=== PATIENT | male | born 1970 | race Two or more races ===

== ENCOUNTER 2021-01-05 01:29 | Emergency (ER) | payer MEDICAID, OTHER ==
[~2021-01-05] VITALS: Ht 188 cm; Wt 72.6 kg
[2021-01-05] MEDS ORDERED: KETOROLAC TROMETH 60MG/2ML VIAL IM ONE (04:30)
[2021-01-05 04:49] VITALS: BP 140/100
== END 2021-01-05 05:20 | disposition home or self-care (01) ==
LOC: ER 01:30
DX: M54.12 Radiculopathy, cervical region (principal); M77.9 Enthesopathy, unspecified
CPT/HCPCS: 72040; 73030; 96372; 99284; J1885

== ENCOUNTER 2024-05-08 14:12 | Inpatient (IN) | payer MEDICAID ==
[~2024-05-08] VITALS: Ht 188 cm; Wt 76.7 kg
--- NOTE | 2024-05-08 15:01 | ED.PDOC ---
History of Present Illness HPI Comments 53-year-old male presents with a chief complaint of redness and swelling to his left foot x onset 2 days. Patient has redness to the anterior portion of his left foot with associated swelling. Patient mentions that he smokes cigarettes, marijuana, and methamphetamine. Patient denies any injuries or trauma prior to onset of symptoms. No other symptoms or modifying factors present at this time. Chief Complaint: Lower Extremity Time Seen by MD: 14:56 Reviewed Notes: Medications, Allergies Allergies: Coded Allergies: NO KNOWN ALLERGIES (Unverified , 05/08/24) Information Source: Patient Mode of Arrival: Ambulatory Severity: Moderate Timing: Days Duration: Since onset Prehospital treatment: None Past Medical History PAST MEDICAL HISTORY: Denies Surgical History: Denies all surgeries Family History Family History: Reviewed,noncontributory to illness, No family hx of Cancer, No family hx of DM, No family hx of Heart suha, No family hx of HTN, No family hx ofKidney suha, No family hx of Liver suha, No family hx of Lung suha, No family hx of Stroke Social History Smoker: Cigarettes Alcohol: Sober Drugs: Marijuana, Methamphetamine Lives In: Home Constitutional: denies: chills, diaphoresis, fatigue, fever, malaise, sweats, weakness, others EENTM: denies: blurred vision, double vision, ear bleeding, ear discharge, ear drainage, ear pain, ear ringing, eye pain, eye redness, hearing loss, mouth pain, mouth swelling, nasal discharge, nose bleeding, nose congestion, nose pain, photophobia, tearing, throat pain, throat swelling, voice changes, others Respiratory: denies: cough, hemoptysis, orthopnea, SOB at rest, shortness of breath, SOB with excertion, stridor, wheezing, others Cardiovascular: reports: edema; denies: chest pain, dizzy spells, diaphoresis, Dyspnea on exertion, irregular heart beat, left arm pain, lightheadedness, palpitations, PND, syncope, others Gastrointestinal: denies: abdomen distended, abdominal pain, blood streaked bowels, constipated, diarrhea, dysphagia, difficulty swallowing, hematemesis, melena, nausea, poor appetite, poor fluid intake, rectal bleeding, rectal pain, vomiting, others Genitourinary: denies: burning, dysuria, flank pain, frequency, hematuria, incontinence, penile discharge, penile sore, pain, testicle pain, testicle swelling, urgency, others Neurological: denies: dizziness, fainting, headache, left sided numbness, left sided weakness, numbness, paresthesia, pre-existing deficit, right sided numbness, right sided weakness, seizure, speech problems, tingling, tremors, w eakness, others Musculoskeletal: denies: back pain, gout, joint pain, joint swelling, muscle pain, muscle stiffness, neck pain, others Integumetry: denies: bruises, change in color, change in hair/nails, dryness, laceration, lesions, lumps, rash, wounds, others Allergic/Immunocompromised: denies: Difficulty Healing, Frequent Infections, Hives, Itching, others Hematologic/Lymphatic: denies: anemia, blood clots, easy bleeding, easy bruising, swollen glands, others Endocrine: denies: excessive hunger, excessive sweating, excessive thirst, excessive urination, flushing, intolerance to cold, intolerance to heat, unexplained weight gain, unexplained weight loss, others Psychiatric: denies: anxiety, bipolar disorder, depression, hopeless, panic disorder, schizophrenia, sleepless, suicidal, others All Other Systems: Reviewed and Negative Physical Exam General Appearance: Moderate Distress HEENT: Normal ENT Inspection, Pharynx Normal, TMs Normal Neck: Full Range of Motion, Non-Tender, Normal, Normal Inspection Respiratory: Chest Non-Tender, Lungs Clear, No Accessory Muscle Use, No Respiratory Distress, Normal Breath Sounds Cardiovascular: No Edema, No JVD, No Murmur, No Gallop, Normal Peripheral Pulses, Regular Rate/Rhythm Breast Exam: Deferred Gastrointestinal: No Organomegaly, Non Tender, No Pulsatile Mass, Normal Bowel Sounds, Soft Genitalia: Deferred Pelvic: Deferred Rectal: Deferred Extremities: No calf tenderness, Normal capillary refill, No pedal edema Musculoskeletal : Apperance: Normal Neurologic: Alert, 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 Was a procedure done?: No Differential Dx Considerations may include: Cellulitis, abscess X-Ray, Labs, Meds, VS Vital Signs Date Time Temp Pulse Resp B/P (MAP) Pulse Ox O2 Delivery O2 Flow Rate FiO2 05/08/24 17:07 97.4 115 16 115/68 (84) 94 97.4 05/08/24 15:07 97.3 123 19 134/83 (100) 98 Lab Test 05/08/24 17:00 05/08/24 15:39 05/08/24 14:35 Range/Units Erythrocyte Sedimentation Rate Pending White Blood Count 9.3 4.4-10.8 10^3/uL Red Blood Count 4.94 4.5-5.90 10^6/uL Hemoglobin 14.4 13.5-17.5 g/dL Hematocrit 43.6 41.0-53.0 % Mean Corpuscular Volume 88.3 80.0-100.0 fL Mean Corpuscular Hemoglobin 29.2 28.0-32.0 pg Mean Corpuscular Hemoglobin Concent 33.1 32.0-36.0 g/dL Red Cell Distribution Width 13.0 11.8-14.3 % Platelet Count 392 140-450 10^3/uL Mean Platelet Volume 7.0 6.9-10.8 fL Neutrophils (%) (Auto) 77.0 37.0-80.0 % Lymphocytes (%) (Auto) 12.6 10.0-50.0 % Monocytes (%) (Auto) 8.0 0.0-12.0 % Eosinophils (%) (Auto) 1.8 0.0-7.0 % Basophils (%) (Auto) 0.6 0.0-2.0 % Neutrophils # (Auto) 7.2 1.6-8.6 10 ^3/uL Lymphocytes # (Auto) 1.2 0.4-5.4 10 ^3/uL Monocytes # (Auto) 0.7 0-1.3 10 ^3/uL Eosinophils # (Auto) 0.2 0-0.8 10 ^3/uL Basophils # (Auto) 0.1 0-0.2 10 ^3/uL Nucleated Red Blood Cells 0.1 % Sodium Level 138 136-145 mmol/L Potassium Level 4.4 3.5-5.1 mmol/L Chloride Level 101 98-107 mmol/L Carbon Dioxide Level 27 20-31 mmol/L Anion Gap 10 5-15 Blood Urea Nitrogen 15 9-23 mg/dL Creatinine 0.89 0.700-1.30 mg/dL Glomerular Filtration Rate Calc 104 >90 mL/min BUN/Creatinine Ratio 16.9 10.0-20.0 Serum Glucose 103 74-106 mg/dL Calcium Level 9.9 8.7-10.4 mg/dL POC Glucose 116 H 70-106 mg/dl Left Foot CT Scan Impression: 1. Subcutaneous edema around the left ankle and foot, may be seen with cellulitis in the appropriate clinical setting, although other inflammatory etiology could also have a similar appearance. 2. No organized fluid collection identified on noncontrast enhanced CT to suggest abscess, although limited evaluation for abscess. 3. No erosive changes or cortical destruction are seen to suggest osteomyelitis. If there remains clinical suspicion for osteomyelitis, MRI could be obtained. 4. Multiple chronic appearing ossific fragments are seen adjacent to the posterior inferior aspect of the lateral malleolus and lateral aspect of the talus, may be sequela of old trauma / injury. Correlate with clinical findings. 5. Hallux valgus deformity. The patient's CBC and chemistry panel are within normal limits The patient was being started on clindamycin IV piggyback The patient was being admitted to the hospitalist Time of 1ST Reevaluation: 15:26 Reevaluation 1ST: Unchanged Patient Education/Counseling: Diagnosis, Treatment, Prognosis Family Education/Counseling: Diagnosis, Treatment, Prognosis Departure 1 Departure Time of Disposition: 19:07 Impression: Primary Impression: Cellulitis of left foot Disposition: ADMITTED INPATIENT Admit to: Med Surg Condition: Fair Critical Care Note Critical Care Time?: No Stability Stability form required: Yes Unstable for transfer: ED Physician Assesment (Clinical assesment) Heart Score Heart Score: Heart Score Response (Comments) Value History N/A 0 EKG N/A 0 Age N/A 0 Risk Factors N/A 0 Troponin N/A 0 Total 0 I personally scribed for LORA TORRES MD ([email or web address]) on 05/08/24 at 15:01. Electronically submitted by Dereje Rai ([email or web address]). I personally scribed for LORA TORRES MD ([email or web address]) on 05/08/24 at 16:23. Electronically submitted by Dereje Rai ([email or web address]). LORA TORRES MD May 08, 2024 15:01
--- NOTE | 2024-05-08 15:50 | DVH ---
CLINICAL INFORMATION: 53 years old, Male; infection. TECHNIQUE: Axial CT images of the left foot were obtained without IV contrast. Coronal and sagittal r eformatted images were obtained, reviewed, and stored. All CT scans at this medical facility are p erformed using dose modulation techniques as appropriate to a performed exam including the following: Automated exposure control was utilized; adjustment of the MA and/or KV according to patient size; a nd use of iterative reconstruction technique. CTDIvol = 7.89 mGy DLP = 255.86 mGy-cm COMPARISON: None FINDINGS: There is subcutaneous edema around the left ankle and foot, which is nonspecific, but may b e seen with cellulitis in the appropriate clinical setting. There is mild skin thickening at the medi al aspect of the 1st MTP joint, may be due to infectious or inflammatory etiology. No definite organ ized fluid collection identified on limited noncontrast enhanced CT to suggest abscess. Multiple osseous fragments are seen along the posterior inferior aspect of the lateral malleolus and adjacent to the lateral aspect of the talus, may be sequela of prior trauma, with chronic appearance. No erosive changes or acute appearing areas of cortical destruction to suggest osteomyelitis. There is hallux valgus deformity. IMPRESSION: 1. Subcutaneous edema around the left ankle and foot, may be seen with cellulitis in the appropriate clinical setting, although other inflammatory etiology could also have a similar appearance. 2. No organized fluid collection identified on noncontrast enhanced CT to suggest abscess, although l imited evaluation for abscess. 3. No erosive changes or cortical destruction are seen to suggest osteomyelitis. If there remains cli nical suspicion for osteomyelitis, MRI could be obtained. 4. Multiple chronic appearing ossific fragments are seen adjacent to the posterior inferior aspect of the lateral malleolus and lateral aspect of the talus, may be sequela of old trauma / injury. Corre late with clinical findings. 5. Hallux valgus deformity.
[2024-05-08 15:53] LABS: Basophils # (auto) 0.1 10 ^3/uL (0-0.2); Basophils % (auto) 0.6 % (0.0-2.0); Eosinophils # (auto) 0.2 10 ^3/uL (0-0.8); Eosinophils % (auto) 1.8 % (0.0-7.0); Hematocrit 43.6 % (41.0-53.0); Hemoglobin 14.4 g/dL (13.5-17.5); Lymphocytes # (auto) 1.2 10 ^3/uL (0.4-5.4); Lymphocytes % (auto) 12.6 % (10.0-50.0); Mean Corpuscular Hemoglobin 29.2 pg (28.0-32.0); Mean Corpuscular Hgb Conc. 33.1 g/dL (32.0-36.0); Mean Corpuscular Volume 88.3 fL (80.0-100.0); Monocytes # (auto) 0.7 10 ^3/uL (0-1.3); Neutrophils # (auto) 7.2 10 ^3/uL (1.6-8.6); Nucleated Red Blood Cells % 0.1 %; Platelet Count (auto) 392 10^3/uL (140-450); Red Blood Cells 4.94 10^6/uL (4.5-5.90); White Blood Cell 9.3 10^3/uL (4.4-10.8)
[2024-05-08 16:04] LABS: Chloride 101 mmol/L (98-107); Potassium 4.4 mmol/L (3.5-5.1); Sodium 138 mmol/L (136-145)
[2024-05-08 16:05] LABS: Anion Gap 10 (5-15); Carbon Dioxide 27 mmol/L (20-31)
[2024-05-08 16:06] LABS: Calcium 9.9 mg/dL (8.7-10.4)
[2024-05-08 16:10] LABS: BUN/Creatinine Ratio 16.9 (10.0-20.0); Blood Urea Nitrogen 15 mg/dL (9-23); Glucose 103 mg/dL (74-106)
[2024-05-08 19:27] LABS: Erythrocyte Sedimentation Rate 65 mm/hr (0-20)
[2024-05-08] MEDS ORDERED: ONDANSETRON HCL 4 MG/2 ML VIAL IV PRN (20:15)
[2024-05-08] MEDS ORDERED: ACETAMINOPHEN 325 MG TAB PO PRN (20:15)
[2024-05-08] MEDS ORDERED: TEMAZEPAM 15 MG CAP PO PRN (20:15)
[2024-05-08] MEDS: CLINDAMYCIN 600MG IV 50 ML IV ONE (21:04)
[2024-05-08 21:05] VITALS: PULSE 85; RESP 19; O2SAT 96
--- NOTE | 2024-05-08 21:40 | DVHHP2 ---
History of Present Illness Reason for Visit: Left foot redness History of Present Illness 53-year-old male presents for evaluation of left foot swelling. Patient reports noticing redness starting from his toes two days ago. He states has progressed up to his ankle. Denies any trauma to the area. Reports occasional chills. No other acute complaints reported. Past Medical History Denies Past Surgical History Denies Family History Noncontributory Smoke: <1 pack per day ALCOHOL: occassional Drugs: Marijuana, Other (Methamphetamine) Lives: Homeless Review of Systems Review of Systems Review of systems are currently negative otherwise addressed in HPI. Allergies: Coded Allergies: NO KNOWN ALLERGIES (Unverified , 05/08/24) Medications Current Medications Medications Dose Ordered Sig/Sowmya Route Start Time Stop Time Status Last Admin Dose Admin Clindamycin Phosphate 50 ml @ 50 mls/hr Q8HR IV 05/08/24 22:00 UNV Acetaminophen/ Hydrocodone Bitart 1 tab Q4HP PRN PO 05/08/24 20:15 UNV Temazepam 15 mg QHSP PRN PO 05/08/24 20:15 UNV Ondansetron HCl 4 mg Q4HP PRN IV 05/08/24 20:15 UNV Acetaminophen 650 mg Q6HP PRN PO 05/08/24 20:15 UNV Exam Vital Signs Vital Signs Date Time Temp Pulse Resp B/P (MAP) Pulse Ox O2 Delivery O2 Flow Rate FiO2 05/08/24 21:11 98.0 112 19 111/58 (75) 96 98.0 05/08/24 21:05 Room Air* 0 21 Exam Gen: 53-year-old male in mild distress Skin: Warm, dry, normal color and texture, no rash. HEENT: Normocephalic atraumatic, mucous membranes moist and pink. Neck: Cervical and supraclavicular nodes normal without enlargement, trachea is midline, thyroid gland is normal without masses. Pulmonary: Clear to auscultation and percussion bilaterally. Cardiac: Regular rate and rhythm. No murmur Abdomen: Soft, nontender, nondistended, bowel sounds present all 4 quadrants, no guarding, no rigidity, no organomegaly. Extremities: No cyanosis, clubbing, left foot erythema Neuro: Cranial nerves II through XII grossly intact, normal affect and speech, no focal motor deficits. Labs/Xrays ORDERING PHYSICIAN: LORA TORRES MD PROCEDURE(s): LFTCT - CT L FOOT WO CONTRAST REASON: infection ORDER NUMBER(s): [id number], ACCESSION NUMBER(s): [id number] CLINICAL INFORMATION: 53 years old, Male; infection. TECHNIQUE: Axial CT images of the left foot were obtained without IV contrast. Coronal and sagittal reformatted images were obtained, reviewed, and stored. All CT scans at this medical facility are performed using dose modulation techniques as appropriate to a performed exam including the following: Automated exposure control was utilized; adjustment of the MA and/or KV according to patient size; and use of iterative reconstruction technique. CTDIvol = 7.89 mGy DLP = 255.86 mGy-cm COMPARISON: None FINDINGS: There is subcutaneous edema around the left ankle and foot, which is nonspecific, but may be seen with cellulitis in the appropriate clinical sett ing. There is mild skin thickening at the medial aspect of the 1st MTP joint, may be due to infectious or inflammatory etiology. No definite organized fluid collection identified on limited noncontrast enhanced CT to suggest abscess. Multiple osseous fragments are seen along the posterior inferior aspect of the lateral malleolus and adjacent to the lateral aspect of the talus, may be sequela of prior trauma, with chronic appearance. No erosive changes or acute appearing areas of cortical destruction to suggest osteomyelitis. There is hallux valgus deformity. IMPRESSION: 1. Subcutaneous edema around the left ankle and foot, may be seen with cellulitis in the appropriate clinical setting, although other inflammatory etiology could also have a similar appearance. 2. No organized fluid collection identified on noncontrast enhanced CT to suggest abscess, although limited evaluation for abscess. 3. No erosive changes or cortical destruction are seen to suggest osteomyelitis. If there remains clinical suspicion for osteomyelitis, MRI could be obtained. 4. Multiple chronic appearing ossific fragments are seen adjacent to the posterior inferior aspect of the lateral malleolus and lateral aspect of the talus, may be sequela of old trauma / injury. Correlate with clinical findings. 5. Hallux valgus deformity. Labs Test 05/08/24 17:00 05/08/24 15:39 05/08/24 14:35 Range/Units Erythrocyte Sedimentation Rate 65 H 0-20 mm/hr White Blood Count 9.3 4.4-10.8 10^3/uL Red Blood Count 4.94 4.5-5.90 10^6/uL Hemoglobin 14.4 13.5-17.5 g/dL Hematocrit 43.6 41.0-53.0 % Mean Corpuscular Volume 88.3 80.0-100.0 fL Mean Corpuscular Hemoglobin 29.2 28.0-32.0 pg Mean Corpuscular Hemoglobin Concent 33.1 32.0-36.0 g/dL Red Cell Distribution Width 13.0 11.8-14.3 % Platelet Count 392 140-450 10^3/uL Mean Platelet Volume 7.0 6.9-10.8 fL Neutrophils (%) (Auto) 77.0 37.0-80.0 % Lymphocytes (%) (Auto) 12.6 10.0-50.0 % Monocytes (%) (Auto) 8.0 0.0-12.0 % Eosinophils (%) (Auto) 1.8 0.0-7.0 % Basophils (%) (Auto) 0.6 0.0-2.0 % Neutrophils # (Auto) 7.2 1.6-8.6 10 ^3/uL Lymphocytes # (Auto) 1.2 0.4-5.4 10 ^3/uL Monocytes # (Auto) 0.7 0-1.3 10 ^3/uL Eosinophils # (Auto) 0.2 0-0.8 10 ^3/uL Basophils # (Auto) 0.1 0-0.2 10 ^3/uL Nucleated Red Blood Cells 0.1 % Sodium Level 138 136-145 mmol/L Potassium Level 4.4 3.5-5.1 mmol/L Chloride Level 101 98-107 mmol/L Carbon Dioxide Level 27 20-31 mmol/L Anion Gap 10 5-15 Blood Urea Nitrogen 15 9-23 mg/dL Creatinine 0.89 0.700-1.30 mg/dL Glomerular Filtration Rate Calc 104 >90 mL/min BUN/Creatinine Ratio 16.9 10.0-20.0 Serum Glucose 103 74-106 mg/dL Calcium Level 9.9 8.7-10.4 mg/dL POC Glucose 116 H 70-106 mg/dl Assessment/Plan Assessment/Plan Assessment Left foot cellulitis SIRS Polysubstance abuse Plan Admit the patient to [facility] to the hospitalist Fritzephin/azithromycin Blood cultures pending Pain management Continue treatment per orders Plan discussed with: Patient My Orders Orders - ARMANDO PRINGLE Procedure Category Date Status Time Admit ADMIT 05/08/24 Transmitted 20:08 Basic Metabolic Panel LAB 05/09/24 Verified 04:00 Clindamycin 600mg Iv PHA 05/08/24 Logged (Cleocin Iv) 22:00 Regular Diet DIET 05/09/24 Transmitted Breakfast Blood Culture RACHEL 05/08/24 Logged 20:11 Lactic Acid W/ Reflex LAB 05/08/24 Logged Order 20:11 Uric Acid LAB 05/08/24 Logged 20:11 Hydrocodone-Acet PHA 05/08/24 Logged 5/325mg Tab ([place] 20:15 Temazepam (Restoril) PHA 05/08/24 Logged 20:15 Ondansetron Hcl PHA 05/08/24 Logged (Zofran) 20:15 Complete Blood Count LAB 05/09/24 Verified 04:00 Condition: Stable ADRIAN 05/08/24 In Process 20:11 Acetaminophen Tablet PHA 05/08/24 Logged (Tylenol Tablet) 20:15 Bedrest With Bathroom ADRIAN 05/08/24 In Process Privileg 20:11 Lt Lower Dvt US 05/08/24 Transmitted 21:35 Date of Service: May 08, 2024 Billing Provider: ARMANDO PRINGLE Common Visit Codes: 16800-[id number] INP/OBS CARE (HIGH) ARMANDO PRINGLE May 08, 2024 21:40
--- NOTE | 2024-05-08 23:01 | DVH ---
Left lower extremity venous duplex Clinical History: r/o dvt Comparison: None Technique: Duplex doppler evaluation of the deep venous system of the left lower extremity from the common femor al vein to the popliteal vein including color doppler and spectral/pulsed waveform analysis was perfo rmed. Findings: The common femoral vein demonstrates appropriate compressibility and waveform variability. There is compressibility/patency of the great saphenous vein at the proximal thigh. The femoral vein demonstrates appropriate compressibility and waveform variability. The deep femoral vein demonstrates appropriate compressibility and waveform variability. The popliteal vein demonstrates appropriate compressibility and waveform variability. Impression: No evidence of left femoropopliteal venous thrombosis.
[2024-05-08] MEDS: cefTRIAXone 1GM/50ML D5W 50 ML IV ONE (23:08)
[2024-05-08] MEDS: HYDROcodone-ACET 5/325MG TAB PO PRN (23:49)
[2024-05-09 02:21] VITALS: BP 115/77; PULSE 112; RESP 20; TEMP 99.7; O2SAT 96
[2024-05-09 03:25] VITALS: BP 128/79; PULSE 103; RESP 18; TEMP 97.5; O2SAT 96
[2024-05-09] MEDS: CLINDAMYCIN 600MG IV 50 ML IV SCH (04:49)
[2024-05-09 05:00] VITALS: BP 120/64; PULSE 95; RESP 18; TEMP 97.9; O2SAT 96
[2024-05-09 08:12] LABS: Basophils # (auto) 0.1 10 ^3/uL (0-0.2); Eosinophils # (auto) 0.2 10 ^3/uL (0-0.8); Eosinophils % (auto) 3.6 % (0.0-7.0); Hematocrit 39.2 % (41.0-53.0); Hemoglobin 13.1 g/dL (13.5-17.5); Lymphocytes % (auto) 14.4 % (10.0-50.0); Mean Corpuscular Hemoglobin 29.5 pg (28.0-32.0); Mean Corpuscular Hgb Conc. 33.5 g/dL (32.0-36.0); Monocytes # (auto) 0.7 10 ^3/uL (0-1.3); Neutrophils # (auto) 4.7 10 ^3/uL (1.6-8.6); Nucleated Red Blood Cells % 0.1 %; Platelet Count (auto) 356 10^3/uL (140-450); Red Blood Cells 4.46 10^6/uL (4.5-5.90); Red Cell Distribution Width 12.7 % (11.8-14.3); White Blood Cell 6.8 10^3/uL (4.4-10.8)
[2024-05-09 08:16] LABS: Chloride 104 mmol/L (98-107); Sodium 138 mmol/L (136-145)
[2024-05-09 08:17] LABS: Anion Gap 6 (5-15); Calcium 9.3 mg/dL (8.7-10.4); Carbon Dioxide 28 mmol/L (20-31)
[2024-05-09 08:22] LABS: BUN/Creatinine Ratio 16.7 (10.0-20.0); Blood Urea Nitrogen 15 mg/dL (9-23); Glucose 105 mg/dL (74-106)
[2024-05-09] MEDS: cefTRIAXone 1GM/50ML D5W 50 ML IV SCH (08:34)
--- NOTE | 2024-05-09 11:49 | DVHPN2 ---
Subjective The patient is seen and examined at bedside. The patient complained of foot pain. Reviewed: Care Plan, H&P, Labs, Medications, Previous Orders, Radiology Changes from previous H/P or p: No Changes Objective Vitals Vital Signs Date Time Temp Pulse Resp B/P (MAP) Pulse Ox O2 Delivery O2 Flow Rate FiO2 05/09/24 08:22 Room Air* 0 21 05/09/24 05:00 97.9 95 18 120/64 (82) 96 97.9 Intake/Output Intake and Output 05/09/24 07:00 Intake Total 350 ml Balance 350 ml Intake Oral 300 ml IV Total 50 ml # Voids 1 General Appearance: Alert, Oriented X3, Cooperative, No acute distress HEENT: Atraumatic, PERRLA, EOMI, Mucous membr. moist/pink Neck: Supple Lungs: Clear to auscultation, Normal air movement Cardiovascular: Regular rate, Normal S1, Normal S2, No murmurs, Gallops, Rubs Abdomen: Normal bowel sounds, Soft, No tenderness Musculoskeletal: Other (Left foot pain) Neuro: Cranial nerves 3-12 NL Skin: Other (Left branner machine tender and warm to touch and errythyma) Psych/Mental Status: Mental status NL Medications Current Medications Medications Dose Ordered Sig/Sowmya Route Start Time Stop Time Status Last Admin Dose Admin Clindamycin Phosphate 50 ml @ 50 mls/hr Q8H IV 05/09/24 05:00 05/09/24 04:49 50 MLS/HR Acetaminophen/ Hydrocodone Bitart 1 tab Q4HP PRN PO 05/08/24 20:15 05/08/24 23:49 1 TAB Temazepam 15 mg QHSP PRN PO 05/08/24 20:15 Ondansetron HCl 4 mg Q4HP PRN IV 05/08/24 20:15 Acetaminophen 650 mg Q6HP PRN PO 05/08/24 20:15 Ceftriaxone Sodium 50 ml @ 100 mls/hr DAILY@09 IV 05/09/24 09:00 05/09/24 08:34 100 MLS/HR Laboratory Results Laboratory Tests 05/09/24 07:25 Chemistry Test 05/08/24 15:39 05/09/24 07:25 Calcium Level 9.9 mg/dL (8.7-10.4) 9.3 mg/dL (8.7-10.4) Labs and/or images reviewed: Labs reviewed by me Assessment/Plan Assessment/Plan Left foot cellulitis SIRS Polysubstance abuse Plan Continuing current management. We will continuing Rocephin 1 g IV q.day. I will discontinuing a Zithromax I will add to the regimen vancomycin pharmacy to dose. We will follow up with blood culture. I will order MRI of the foot to rule out osteomyelitis. Continuing with IV pain medication and [place] p.r.n. for pain control. Advised the patient to stop using drugs. This medical document was created using an electronic medical record system with [employer] computerized dictation system. Although this document has been carefully reviewed, there may still be some phonetic and typographical errors. These areas are purely typographical due to imperfections of the software programs, and do not reflect any compromise in the patient's medical care. Plan discussed with: Patient Date of Service: May 09, 2024 Billing Provider: OSWALDO SPANGLER MD Common Visit Codes: [id number] INP/OBS CARE(HIGH) OSWALDO SPANGLER MD May 09, 2024 11:49
[2024-05-09 20:00] VITALS: PULSE 88; RESP 18
[2024-05-09 21:00] VITALS: BP 118/74; PULSE 98; RESP 18; TEMP 97.1; O2SAT 94
[2024-05-10 01:00] VITALS: BP 116/66; PULSE 83; RESP 19; TEMP 97.8; O2SAT 95
[2024-05-10 05:00] VITALS: BP 122/74; PULSE 89; RESP 18; TEMP 97.8; O2SAT 96
[2024-05-10] MEDS ORDERED: VANCOMYCIN PER PHARMACY 0 MG IV SCH (05:45)
[2024-05-10] MEDS: VANCOMYCIN 1GM/250mL NS or D5W KIT IV ONE (06:21)
[2024-05-10 09:00] VITALS: BP 115/73; PULSE 96; RESP 18; TEMP 98.4; O2SAT 96
--- NOTE | 2024-05-10 09:42 | DVH ---
CLINICAL INDICATION: 53 years old, Male; OSTEOMYELITIS. COMPARISON: CT CT L FOOT WO CONTRAST on DOS: 05/08/24 TECHNIQUE: Multiplanar, multisequence MRI of the left foot was performed without intravenous contrast . Contrast: None. INTERPRETATION: Bones /joints: No evidence of acute fracture. There is no marrow replacing lesion. Hallux valgus. Kayla int spaces are otherwise maintained. Soft tissues: Dorsal soft tissue swelling in the forefoot especially the lateral aspect of the forefo ot. No fluid collection. No high-grade tendon or ligament injury. Regional muscles are normal in bul k and signal characteristics. IMPRESSION: 1. No evidence of osteomyelitis. 2. Soft tissue swelling which may reflect cellulitis.
[2024-05-10 11:21] LABS: Basophils # (auto) 0.1 10 ^3/uL (0-0.2); Basophils % (auto) 1.5 % (0.0-2.0); Eosinophils # (auto) 0.3 10 ^3/uL (0-0.8); Eosinophils % (auto) 4.2 % (0.0-7.0); Hematocrit 41.5 % (41.0-53.0); Hemoglobin 13.6 g/dL (13.5-17.5); Lymphocytes # (auto) 1.1 10 ^3/uL (0.4-5.4); Lymphocytes % (auto) 18.4 % (10.0-50.0); Mean Corpuscular Hemoglobin 28.9 pg (28.0-32.0); Mean Corpuscular Hgb Conc. 32.8 g/dL (32.0-36.0); Mean Corpuscular Volume 88.3 fL (80.0-100.0); Monocytes # (auto) 0.6 10 ^3/uL (0-1.3); Monocytes % (auto) 10.2 % (0.0-12.0); Neutrophils # (auto) 4.1 10 ^3/uL (1.6-8.6); Neutrophils % (auto) 65.7 % (37.0-80.0); Nucleated Red Blood Cells % 0.1 %; Platelet Count (auto) 379 10^3/uL (140-450); Red Cell Distribution Width 13.1 % (11.8-14.3); White Blood Cell 6.2 10^3/uL (4.4-10.8)
[2024-05-10 11:36] LABS: Chloride 101 mmol/L (98-107); Potassium 4.3 mmol/L (3.5-5.1); Sodium 136 mmol/L (136-145)
[2024-05-10 11:37] LABS: Anion Gap 7 (5-15); Calcium 9.6 mg/dL (8.7-10.4); Carbon Dioxide 28 mmol/L (20-31)
[2024-05-10 11:42] LABS: BUN/Creatinine Ratio 15.6 (10.0-20.0); Blood Urea Nitrogen 12 mg/dL (9-23); Glucose 98 mg/dL (74-106)
[2024-05-10 13:00] VITALS: BP 122/71; PULSE 71; RESP 16; TEMP 97.8; O2SAT 98
[2024-05-10] MEDS ORDERED: DOXY-111 PO (16:20)
--- NOTE | 2024-05-10 16:22 | DVHDS2 ---
Discharge Summary Date of Admission May 08, 2024 at 20:08 Date of Discharge: May 10, 2024 Labs/Diagnostic Data: Laboratory Results Test 05/10/24 10:40 05/08/24 21:10 05/08/24 17:00 05/08/24 14:35 White Blood Count 6.2 10^3/uL (4.4-10.8) Red Blood Count 4.70 10^6/uL (4.5-5.90) Hemoglobin 13.6 g/dL (13.5-17.5) Hematocrit 41.5 % (41.0-53.0) Mean Corpuscular Volume 88.3 fL (80.0-100.0) Mean Corpuscular Hemoglobin 28.9 pg (28.0-32.0) Mean Corpuscular Hemoglobin Concent 32.8 g/dL (32.0-36.0) Red Cell Distribution Width 13.1 % (11.8-14.3) Platelet Count 379 10^3/uL (140-450) Mean Platelet Volume 7.3 fL (6.9-10.8) Neutrophils (%) (Auto) 65.7 % (37.0-80.0) Lymphocytes (%) (Auto) 18.4 % (10.0-50.0) Monocytes (%) (Auto) 10.2 % (0.0-12.0) Eosinophils (%) (Auto) 4.2 % (0.0-7.0) Basophils (%) (Auto) 1.5 % (0.0-2.0) Neutrophils # (Auto) 4.1 10 ^3/uL (1.6-8.6) Lymphocytes # (Auto) 1.1 10 ^3/uL (0.4-5.4) Monocytes # (Auto) 0.6 10 ^3/uL (0-1.3) Eosinophils # (Auto) 0.3 10 ^3/uL (0-0.8) Basophils # (Auto) 0.1 10 ^3/uL (0-0.2) Nucleated Red Blood Cells 0.1 % Sodium Level 136 mmol/L (136-145) Potassium Level 4.3 mmol/L (3.5-5.1) Chloride Level 101 mmol/L (98-107) Carbon Dioxide Level 28 mmol/L (20-31) Anion Gap 7 (5-15) Blood Urea Nitrogen 12 mg/dL (9-23) Creatinine 0.77 mg/dL (0.700-1.30) Glomerular Filtration Rate Calc 108 mL/min (>90) BUN/Creatinine Ratio 15.6 (10.0-20.0) Serum Glucose 98 mg/dL (74-106) Calcium Level 9.6 mg/dL (8.7-10.4) Lactic Acid Level 1.1 mmol/L (0.4-2.0) Uric Acid 5.9 mg/dL (3.7-9.2) Erythrocyte Sedimentation Rate 65 mm/hr (0-20) POC Glucose 116 mg/dl (70-106) Other Laboratory Tests 05/10/24 10:40 Brief Hx & Hospital Course: 53-year-old male presents for evaluation of left foot swelling. Patient reports noticing redness starting from his toes two days ago. He states has progressed up to his ankle. Denies any trauma to the area. Reports occasional chills. No other acute complaints reported. Cellulitis of left foot improved Condition at Discharge: Good Final Diagnosis/Problems List cellulitis of left foot Discharge Disposition: Home Discharge Instruct/Medications Diet: Regular Activity: No Restrictions, As Tolerated Discharge Statement: "Patient was advised to return to the ER or call 911 if any headaches, dizziness, shortness of breath, chest pain, abdominal pain, bleeding, fevers, or worsening of medical condition. Patient was counseled about treatment plan, medications, possible side effects, patientverbalized understanding. All questions were answered to the best of my ability. This discharge took greater then 30 minutes in planning, reviewing documentation, counseling the patient, and discussing with other team members." ASSESSMENT ASSESSMENT Assessment Date of Service: May 10, 2024 Billing Provider: JENNY BOCANEGRA MD Common Visit Codes: 43349-LIT/OBS DISCH DAY >30min JENNY BOCANEGRA MD May 10, 2024 16:22
[2024-05-10 16:44] VITALS: BP 122/71; PULSE 61; RESP 16; TEMP 98.1; O2SAT 95
[2024-05-10 17:00] VITALS: BP 121/73; PULSE 94; RESP 16; TEMP 98.3; O2SAT 94
[2024-05-10] MEDS: VANCOMYCIN 1GM/250ML KIT 250 ML IV SCH (18:00)
== END 2024-05-10 15:30 | disposition home or self-care (01) | DRG 383 ==
LOC: ER 14:12 → OVERFLOW 20:08 → WEST WING 05-09 03:09
PROVIDERS: ADMIT Nurse Practitioner; ATTEND Hospitalist
DX: L03.116 Cellulitis of left lower limb (principal); F17.210 Nicotine dependence, cigarettes, uncomplicated; F19.10 Other psychoactive substance abuse, uncomplicated
CPT/HCPCS: 36415; 73700; 73718; 80048; 82962; 83605; 84550; 85025; 85652; 87040; 93971; G0378; J3490

== ENCOUNTER 2024-06-01 17:23 | Emergency (ER) | payer MEDICAID ==
[~2024-06-01] VITALS: Ht 188 cm; Wt 78.5 kg
[~2024-06-01 17:23] MED LIST: DOXY-111 PO
[2024-06-01 18:39] VITALS: BP 137/99; PULSE 122; RESP 18; TEMP 97.7; O2SAT 97
[2024-06-01] MEDS ORDERED: CLIN1CAP70 PO (18:52)
[2024-06-01] MEDS: cefTRIAXone SOD 1,000 MG VL IM ONE (18:52)
[2024-06-01] MEDS: LIDOCAINE 1% HCL (LOCAL ANESTH.) INJ 20ML MDV ONE (18:52)
[2024-06-01] MEDS ORDERED: IBUP-1456 PO (18:52)
--- NOTE | 2024-06-01 18:53 | ED.PDOC ---
History of Present Illness(SKN HPI Comments 53-year-old male presents to ER with complaints of wound check. Patient reports he has been experiencing pain/swelling/redness and mild tenderness localized to region of left AC x1 week and presents to ER today for wound check. States he did have a IV DC'd from this region last month on May 10. Denies any current pain. Denies use of medications for current symptoms. Patient presents to ER ambulatory on arrival, with steady gait, in no distress. Denies fever, skin drainage, numbness/tingling, shortness of breath, chest pain or any further symptoms/complaints Chief Complaint: Abscess Time Seen by MD: 18:08 Primary Care Provider: UNKNOWN History of Present Illness: Nurses Notes, Medications, Allergies Allergies: Coded Allergies: NO KNOWN ALLERGIES (Unverified , 05/08/24) Home Meds Active Scripts Ibuprofen (Ibuprofen) 800 Mg Tab, 1 TAB PO TID PRN, #30 TAB 0 Refills Prov:SPRING HUGGINS 06/01/24 Clindamycin Hcl (Clindamycin Hcl) 300 Mg Cap, 1 CAP PO TID for 7 Days, #21 CAP 0 Refills Prov:SPRING HUGGINS 06/01/24 Doxycycline Monohydrate (Doxycycline Monohydrate) 100 Mg Tab, 100 MG PO BID for 7 Days, #14 TAB Prov:JENNY BOCANEGRA MD 05/10/24 Information Source: Patient Mode of Arrival: Ambulatory Past Medical History PAST MEDICAL HISTORY: Denies Surgical History: Denies all surgeries Family History Family History: Unknown Social History Smoker: Cigarettes, Less Than 1 Pack/Day Alcohol: Sober Drugs: Marijuana, Methamphetamine Lives In: Home Constitutional: denies: chills, diaphoresis, fatigue, fever, malaise, sweats, weakness, others EENTM: denies: blurred vision, double vision, ear bleeding, ear discharge, ear drainage, ear pain, ear ringing, eye pain, eye redness, hearing loss, mouth pain, mouth swelling, nasal discharge, nose bleeding, nose congestion, nose pain, photophobia, tearing, throat pain, throat swelling, voice changes, others Respiratory: denies: cough, hemoptysis, orthopnea, SOB at rest, shortness of breath, SOB with excertion, stridor, wheezing, others Cardiovascular: denies: chest pain, dizzy spells, diaphoresis, Dyspnea on exertion, edema, irregular heart beat, left arm pain, lightheadedness, palpitations, PND, syncope, others Gastrointestinal: denies: abdomen distended, abdominal pain, blood streaked bowels, constipated, diarrhea, dysphagia, difficulty swallowing, hematemesis, melena, nausea, poor appetite, poor fluid intake, rectal bleeding, rectal pain, vomiting, others Genitourinary: denies: burning, dysuria, flank pain, frequency, hematuria, incontinence, penile discharge, penile sore, pain, testicle pain, testicle swelling, urgency, others Neurological: denies: dizziness, fainting, headache, left sided numbness, left sided weakness, numbness, paresthesia, pre-existing deficit, right sided numbness, right sided weakness, seizure, speech problems, tingling, tremors, weakness, others Musculoskeletal: denies: back pain, gout, joint pain, joint swelling, muscle pain, muscle stiffness, neck pain, others Integumetry: reports: others (As stated in HPI) Allergic/Immunocompromised: denies: Difficulty Healing, Frequent Infections, Hives, Itching, others Hematologic/Lymphatic: denies: anemia, blood clots, easy bleeding, easy bruising, swollen glands, others Endocrine: denies: excessive hunger, excessive sweating, excessive thirst, excessive urination, flushing, intolerance to cold, intolerance to heat, unexplained weight gain, unexplained weight loss, others Psychiatric: denies: anxiety, bipolar disorder, depression, hopeless, panic disorder, schizophrenia, sleepless, suicidal, others Physical Exam General Appearance: No Apparent Distress HEENT: PERRL/EOMI Neck: Full Range of Motion, Non-Tender, Normal Respiratory: Chest Non-Tender, Lungs Clear, No Accessory Muscle Use, No Respiratory Distress, Normal Breath Sounds Cardiovascular: No Murmur, No Gallop, Regular Rate/Rhythm Breast Exam: Deferred Gastrointestinal: NOT DONE Genitalia: Deferred Pelvic: Deferred Rectal: Deferred Extremities: Normal capillary refill, Normal range of motion Musculoskeletal : Extremity Location: Arm (TTP/mild erythema/minimal swelling noted to region of left AC without fluctuance. 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 Was a procedure done?: No Sedation Sedation?: No Differential Diagnosis (INTG) Differential Diagnosis: Abrasion Abscess: Abscess, Bacteremia Differential Diagnosis: Retained Foreign Body, Other (dvt) X-Ray, Labs, Meds, VS Vital Signs Date Time Temp Pulse Resp B/P (MAP) Pulse Ox O2 Delivery O2 Flow Rate FiO2 06/01/24 18:39 97.7 122 18 137/99 (112) 97 97.7 06/01/24 18:39 122 18 97 Room Air 06/01/24 18:19 97.7 122 18 139/97 (111) 97 Lab Test 06/01/24 19:15 Range/Units White Blood Count 8.4 4.4-10.8 10^3/uL Red Blood Count 4.67 4.5-5.90 10^6/uL Hemoglobin 13.7 13.5-17.5 g/dL Hematocrit 41.5 41.0-53.0 % Mean Corpuscular Volume 89.0 80.0-100.0 fL Mean Corpuscular Hemoglobin 29.3 28.0-32.0 pg Mean Corpuscular Hemoglobin Concent 32.9 32.0-36.0 g/dL Red Cell Distribution Width 14.5 H 11.8-14.3 % Platelet Count 284 140-450 10^3/uL Mean Platelet Volume 7.5 6.9-10.8 fL Neutrophils (%) (Auto) 78.8 37.0-80.0 % Lymphocytes (%) (Auto) 12.6 10.0-50.0 % Monocytes (%) (Auto) 6.6 0.0-12.0 % Eosinophils (%) (Auto) 0.9 0.0-7.0 % Basophils (%) (Auto) 1.1 0.0-2.0 % Neutrophils # (Auto) 6.6 1.6-8.6 10 ^3/uL Lymphocytes # (Auto) 1.1 0.4-5.4 10 ^3/uL Monocytes # (Auto) 0.6 0-1.3 10 ^3/uL Eosinophils # (Auto) 0.1 0-0.8 10 ^3/uL Basophils # (Auto) 0.1 0-0.2 10 ^3/uL Nucleated Red Blood Cells 0.1 % Current Medications Medications (Trade) Dose Ordered Sig/Sowmya Route Start Time Stop Time Status Last Admin Ceftriaxone Sodium (Rocephin) 1,000 mg ONCE ONCE IM 06/01/24 18:45 06/01/24 18:46 DC 06/01/24 18:52 PATIENT: BEATRIS BALDWINACCT: [id number]: [id number] : 1970 LOC: ER ROOM / BED: / AGE / SEX: 53 / M ADM STATUS: REG ER SERVICE 184 ORDERING PHYSICIAN: SPRING HUGGINS PROCEDURE(s): LUDVT - LT Upper DVT REASON: left arm pain/swelling ORDER NUMBER(s): [id number], ACCESSION NUMBER(s): [id number] LEFT Upper Extremity Venous Duplex Clinical History: left arm pain/swelling Comparison: US LT LOWER DVT on DOS: 05/08/24 Technique: Duplex Doppler evaluation of the venous system of the LEFT lower neck and upper extremity including color Doppler and spectral/pulsed waveform analysis was performed. Findings: The internal jugular vein demonstrates appropriate compressibility and waveform variability. The subclavian vein is patent on color Doppler evaluation without intraluminal thrombus and demonstrates waveform variability. The visualized portion of the brachiocephalic vein is patent on color Doppler evaluation without intraluminal thrombus and demonstrates waveform variability. The axillary vein demonstrates appropriate compressibility and waveform variabi lity. The brachial veins demonstrate appropriate compressibility and patency on Doppler evaluation. The basilic vein demonstrates appropriate compressibility and patency on Doppler evaluation. The cephalic vein demonstrates appropriate compressibility and patency on Doppler evaluation. Evidence of mild edema in the subcutaneous soft tissues in the area of clinical concern in the left medial cubital fossa, nonspecific, may represent cellulitis. Impression: No venous thrombus identified in the LEFT upper extremity vessels evaluated above. Evidence of mild edema in the subcutaneous soft tissues in the area of clinical concern in the left medial cubital fossa, nonspecific, may represent cellulitis. ATED BY: KINGSLEY SCHAEFER MD DICTATED DATE/TIME: 06/01/241949 SIGNED BY: KINGSLEY SCHAEFER MD SIGNED DATE/TIME: 06/01/241949 CC: Rocephin 1 g IM ordered Patient neurovascularly intact and had improvement in symptoms prior to discharge CBC reviewed without any significant abnormalities Left upper arm DVT ultrasound reviewed Advised on elevation and alternate warm compresses on/off Previous chart visit reviewed Methamphetamine/cannabis/smoking cessation discussed and advised Advised to follow up with PCP in 1-2 days Patient verbalized understanding and agreeable with current plan of care Advised to return to ER immediately if symptoms worsen Images Reviewed?: Images reviewed and evaluated by me Time of 1ST Reevaluation: 18:24 Reevaluation 1ST: N/A Patient Education/Counseling: Diagnosis, Treatment, Prognosis, Need For Follow Up Family Education/Counseling: No Family Present Departure 1 Departure Time of Disposition: 18:50 Impression: Primary Impression: Cellulitis of left upper arm Disposition: 01 HOME / SELF CARE / HOMELESS Condition: Stable e-Prescriptions Ibuprofen (Ibuprofen) 800 Mg Tab 1 TAB PO TID PRN, #30 TAB 0 Refills Prov: SPRING HUGGISN 06/01/24 Clindamycin Hcl (Clindamycin Hcl) 300 Mg Cap 1 CAP PO TID for 7 Days, #21 CAP 0 Refills Prov: SPRING HUGGINS 06/01/24 Discharged With: Self Critical Care Note Critical Care Time?: No Stability Stability form required: No Heart Score Heart Score: Heart Score Response (Comments) Value History N/A 0 EKG N/A 0 Age N/A 0 Risk Factors N/A 0 Troponin N/A 0 Total 0 SPRING HUGGINS Jun 01, 2024 18:53
[2024-06-01 19:33] LABS: Basophils # (auto) 0.1 10 ^3/uL (0-0.2); Basophils % (auto) 1.1 % (0.0-2.0); Eosinophils # (auto) 0.1 10 ^3/uL (0-0.8); Eosinophils % (auto) 0.9 % (0.0-7.0); Hematocrit 41.5 % (41.0-53.0); Hemoglobin 13.7 g/dL (13.5-17.5); Lymphocytes # (auto) 1.1 10 ^3/uL (0.4-5.4); Lymphocytes % (auto) 12.6 % (10.0-50.0); Mean Corpuscular Hemoglobin 29.3 pg (28.0-32.0); Mean Corpuscular Hgb Conc. 32.9 g/dL (32.0-36.0); Monocytes # (auto) 0.6 10 ^3/uL (0-1.3); Monocytes % (auto) 6.6 % (0.0-12.0); Neutrophils # (auto) 6.6 10 ^3/uL (1.6-8.6); Neutrophils % (auto) 78.8 % (37.0-80.0); Nucleated Red Blood Cells % 0.1 %; Platelet Count (auto) 284 10^3/uL (140-450); Red Blood Cells 4.67 10^6/uL (4.5-5.90); Red Cell Distribution Width 14.5 % (11.8-14.3); White Blood Cell 8.4 10^3/uL (4.4-10.8)
--- NOTE | 2024-06-01 19:52 | DVH ---
LEFT Upper Extremity Venous Duplex Clinical History: left arm pain/swelling Comparison: US LT LOWER DVT on DOS: 05/08/24 Technique: Duplex Doppler evaluation of the venous system of the LEFT lower neck and upper extremity including color Doppler and spectral/pulsed waveform analysis was performed. Findings: The internal jugular vein demonstrates appropriate compressibility and waveform variability. The subclavian vein is patent on color Doppler evaluation without intraluminal thrombus and demonstra rhett waveform variability. The visualized portion of the brachiocephalic vein is patent on color Doppler evaluation without intr aluminal thrombus and demonstrates waveform variability. The axillary vein demonstrates appropriate compressibility and waveform variability. The brachial veins demonstrate appropriate compressibility and patency on Doppler evaluation. The basilic vein demonstrates appropriate compressibility and patency on Doppler evaluation. The cephalic vein demonstrates appropriate compressibility and patency on Doppler evaluation. Evidence of mild edema in the subcutaneous soft tissues in the area of clinical concern in the left m edial cubital fossa, nonspecific, may represent cellulitis. Impression: No venous thrombus identified in the LEFT upper extremity vessels evaluated above. Evidence of mild edema in the subcutaneous soft tissues in the area of clinical concern in the left m edial cubital fossa, nonspecific, may represent cellulitis.
== END 2024-06-01 20:10 | disposition home or self-care (01) ==
LOC: ER 17:23
DX: L03.114 Cellulitis of left upper limb (principal); F17.210 Nicotine dependence, cigarettes, uncomplicated; F12.90 Cannabis use, unspecified, uncomplicated; Z79.899 Other long term (current) drug therapy
CPT/HCPCS: 36415; 85025; 93971; 96372; 99285; J0696; J2003